=== PATIENT | female | born 1955 | race Caucasian/White ===

== ENCOUNTER 2023-04-28 16:49 | Emergency (ER) | payer SELFPAY ==
[~2023-04-28] VITALS: Ht 167.6 cm; Wt 113.0 kg
[2023-04-28 16:54] VITALS: BP 138/78; PULSE 88; RESP 18; TEMP 98; O2SAT 98
[2023-04-28] MEDS ORDERED: IBUPROFEN 600MG TABLET PO ONE (17:15)
[2023-04-28] MEDS ORDERED: IBUP-2030 MT (19:13)
== END 2023-04-28 22:57 | disposition home or self-care (01) ==
LOC: ER 16:49
DX: S33.5XXA Sprain of ligaments of lumbar spine, initial encounter (principal); S23.3XXA Sprain of ligaments of thoracic spine, initial encounter; I10 Essential (primary) hypertension; W11.XXXA Fall on and from ladder, initial encounter; Y93.89 Activity, other specified; Y92.89 Other specified places as the place of occurrence of the external cause; Y99.8 Other external cause status
CPT/HCPCS: 72070; 72100; 99284